=== PATIENT | male | born 1985 | race Caucasian/White ===

== ENCOUNTER 2024-12-29 00:24 | Emergency (ER) | payer OTHER, SELFPAY ==
[2024-12-29 00:32] VITALS: BP 168/84
--- NOTE | 2024-12-29 00:52 | ED.GENMED ---
History of Present Illness
General
Chief Complaint: Chest Pain
Source: patient
Time Seen by Provider: 12/29/24 00:45
History of Present Illness
History of Present Illness:
39-year-old male presents to the emergency room complaining of chest discomfort. Patient states he is having a tightness in his upper chest neck which has been present for the past couple months. He seems to notice this type of discomfort more
when he is relaxed and there is less stimulus. When he is busy during the day he does not notice it. Patient is a history of IgA nephropathy. Currently this is in remission. However he is concerned that he might be having a flare causing him to
have high blood pressure chest pain. He denies any fever, chills, nausea or vomiting.
Phy Exam
Physical Exam
Physical Exam:
General: Awake, Alert, Oriented X3. No acute distress.
Vitals: unremarkable
Head: Atraumatic
Eyes: Pupils equal, EOMI
Throat: Airway intact, no exudates
Neck: Trachea midline
Lungs: Clear and equal b/l
Heart: Regular rate, no murmurs
Abd: Soft, Nontender, No pulsatile mass
Neuro: Nonfocal
Skin: Warm, dry, no rash
Extremities: pulses equal b/l, no edema
Scores
Heart Score for Chest Pain Patients
STEMI patient?: No
History: Slightly or Non-Suspicious
ECG: Nonspecific Repolarization
Age: </= 45 years
Risk Factors: 1 or 2 Risk Factors
Troponin: </= Normal Limit
Heart Score for Chest Pain Patients: 2
Heart Score Risk: 2.5% MACE over next 6 weeks
Course
Orders/Labs/Results
Orders:
Orders
12/29/24 00:34
Electrocardiogram (*1) Urgent
Reason for Study: Chest Pain
EKG- Treatment ONCE
12/29/24 00:51
Cardiac Monitoring- Treatment ONCE
CR Chest - 2 Views Urgent
Comment:
Reason For Exam: chest pain
12/29/24 00:57
Complete Blood Count/With Diff Urgent
Comprehensive Metabolic Panel Urgent
Magnesium Urgent
Troponin I Urgent
12/29/24 01:26
Urinalysis Reflex To Culture Urgent
Date Specimen was Collected: 12/29/24
Time Specimen was Collected: 01:23
Urine Microscopic Reflex Cult Urgent
Abnormal Lab Results
12/29/24 12/29/24
00:57 01:26
RBC 4.40 L 10^6/uL
(4.70-6.10)
Hgb 12.5 L g/dL
(13.0-18.0)
Hct 38.1 L %
(39.0-52.0)
MCHC 32.8 L g/dL
(33.0-37.0)
Absolute Monos (auto) 0.7 H 10^3/uL
(0.1-0.6)
Chloride 108 H mmol/L
(98-107)
BUN 32 H mg/dl
(9-20)
Creatinine 2.1 H mg/dL
(0.7-1.3)
Glucose 113 H mg/dl
(70-99)
Ur Occult Blood Reflex 3+ A
(Negative)
Urine RBC 11-15 A /HPF
(0-2)
Urine Bacteria (Reflex) Few A
(Negative)
Urine Albumin (Reflex) 3+ A
(Neg - Trace)
12/29/24 00:57
12/29/24 00:57
Vital Signs
Initial and Last Documented VS:
Initial Vital Signs
Temp Pulse Resp BP Pulse Ox
98.3 F 91 20 168/84 99
12/29/24 00:32 12/29/24 00:32 12/29/24 00:32 12/29/24 00:32 12/29/24 00:32
Last Documented Vital Signs
Temp Pulse Resp BP Pulse Ox
98.3 F 83 20 130/78 98
12/29/24 00:32 12/29/24 03:47 12/29/24 03:47 12/29/24 03:47 12/29/24 03:48
MDM/Problems Addressed
Differential Diagnosis Includes:
Angina, GERD, chest wall pain, uncontrolled hypertension
MDM/Problems Addressed:
Patient presents with chest discomfort which is a bit atypical and that it has been present for the last few weeks. Maybe worse over the past couple days. Patient has a history of IgA nephropathy but states his creatinine has been pretty normal.
Creatinine today noted to be 2.1. He believes this is significant elevated. He sees a tube backer in [facility]. Troponin is normal x 2. Suspect he is feeling unwell because of his elevated creatinine likely related to an exacerbation of IgA
nephropathy. Briefly discussed patient's presentation with Dr. Rodriguez on-call for nephrology. She does not believe there would be any significant benefit to hospitalization as the medications he will require can all be started as an outpatient as
long as he does not have gross hematuria which he does not. Patient instructed to follow-up with his tube backer.
*Radiology
Radiology exam reviewed: preliminary read by ED provider (No acute disease on my review of the patient's chest x-ray)
*Pulse Oximetry
Patient hypoxic: no
*EKG
Interpreted by ED Provider?: Yes
Interpretation: abnormal
Heart Rate: 82
Rate: normal
Rhythm: sinus
Interval: first degree heart block
QRS Pattern: normal QRS
Ischemia: non-specific ST changes
*Applied Psychology Teacher Interpretation
Rate: normal
Interpretation: normal
Rhythm: sinus
*Critical Care Note
Total Time (30-74mins, 75-104mins- exclusive of procedures): Not Applicable
ED Attending Note
-
Portions of this chart may have been created with voice recognition software.� Occasional wrong word or��sound alike� substitutions may have occurred due to the inherent limitations of voice recognition software.
Discharge Plan
Departure
Patient Disposition: Home (Routine Discharge)
Patient with high blood pressure during this ER visit?: No
Condition: Good
Discharge Problem:
Chest pain, Creatinine elevation, IgA nephropathy
Instructions: IgA nephropathy, Chest Pain DCA Follow Up
Prescriptions:
No Action
losartan 50 mg Tablet
100 mg PO DAILY
Referrals:
NONE,* [Family Provider, Internal Medicine]
Activity Restrictions/Additional Instructions:
Please call your kidney doctor's office in the morning and ask to speak to the on-call neurologist so you can discuss the lab results. You should receive a call from the cardiology office to arrange an appointment.
Interventions
Interventions:
*Risk Screen - Suicide Last Done: 12/29/24 01:07
*General Assessment Last Done: 12/29/24 01:07
*Neglect/Abuse Screening Last Done: 12/29/24 01:07
*ED- Fall Risk Assessment Last Done: 12/29/24 01:07
*ED COVID-19 Vaccine History Last Done: 12/29/24 01:07
*Nursing Disposition Last Done: 12/29/24 03:48
ED- Cardiac Assessment Last Done: 12/29/24 01:07
Discharge Date and Time
Discharge Date/Time: 12/29/24 03:48
Print Language: MOROCCAN
[2024-12-29 01:05] VITALS: BMI 27.8
[2024-12-29 01:08] LABS: % Basophils 0.6 % (0-2); % Eosinophils 1.2 % (0-6); % Immature Granulocytes 0.4 % (0-0.5); % Lymphocytes 30.3 % (20.5-51.1); % Monocytes 8.2 % (1.7-9.3); % Neutrophils 59.3 % (42.2-75.2); Absolute Basophils 0.1 10^3/uL (0-0.2); Absolute Eosinophils 0.1 10^3/uL (0-0.7); Absolute Lymphocytes 2.6 10^3/uL (1.2-3.4); Absolute Monocytes 0.7 10^3/uL (0.1-0.6); Absolute Neutrophils 5.1 10^3/uL (1.4-6.5); Hematocrit 38.1 % (39.0-52.0); Hemoglobin 12.5 g/dL (13.0-18.0); Mean Corp Hgb Conc. 32.8 g/dL (33.0-37.0); Mean Corpuscular Hgb 28.4 pg (27.0-31.0); Mean Corpuscular Volume 86.6 fL (80.0-94.0); Mean Platelet Volume 9.6 fL (7.4-10.4); Nucleated Red Blood Cells % 0 % (-); Platelet Count 227 10^3/uL (130-400); White Blood Cell Count 8.6 10^3/uL (4.8-10.8)
[2024-12-29 01:21] LABS: ALT (SGPT) 27 U/L (0-50); AST (SGOT) 40 U/L (17-59); Albumin 4.1 g/dl (3.5-5.0); Alkaline Phosphatase 68 U/L (38-126); Blood Urea Nitrogen 32 mg/dl (9-20); Calcium 8.9 mg/dl (8.4-10.2); Carbon Dioxide 28 mmol/L (22-30); Chloride 108 mmol/L (98-107); Estimated Creatinine Clearance 54 ml/min; Glucose 113 mg/dl (70-99); Potassium 4.4 mmol/L (3.5-5.1); Sodium 142 mmol/L (135-145); Total Bilirubin 0.3 mg/dl (0.2-1.3); Total Protein 6.8 g/dl (6.3-8.2); eGFR 39.81
[2024-12-29 01:32] LABS: Troponin I < 0.012 ng/ml
[2024-12-29 01:40] VITALS: BP 138/80
[2024-12-29 01:47] LABS: Urine Albumin 3+ (Neg - Trace); Urine Bilirubin Negative (Negative); Urine Character Clear (Clear); Urine Color Yellow; Urine Glucose Negative (Negative); Urine Ketone Negative (Negative); Urine Leukocyte Negative (Negative); Urine Nitrite Negative (Negative); Urine Occult Blood 3+ (Negative); Urine Urobilinogen Negative (Neg - 1+)
[2024-12-29 01:57] LABS: Urine Bacteria Few (Negative); Urine Squamous Cell 0-2 /LPF (Few); Urine White Cell 0-2 /HPF (0-5)
[2024-12-29 02:36] VITALS: BP 110/70
[2024-12-29 03:47] VITALS: BP 130/78
== END 2024-12-29 03:48 | disposition home or self-care (01) ==
LOC: EMR 00:24
PROVIDERS: EMERGENCY PHYSICIAN Emergency Medicine
DX: R07.89 Other chest pain (principal); N02.B1 Recurrent and persistent immunoglobulin A nephropathy with glomerular lesion; R79.89 Other specified abnormal findings of blood chemistry; I44.0 Atrioventricular block, first degree
CPT/HCPCS: 99283; 71046; 80053; 81003; 81015; 83735; 84484; 85025; 93005

== ENCOUNTER 2025-01-02 23:35 | Emergency (ER) | payer OTHER, SELFPAY ==
[2025-01-02 23:45] VITALS: BP 155/80
[2025-01-03 00:53] VITALS: BP 151/66; BMI 27.5
[2025-01-03 01:00] VITALS: BP 137/66
[2025-01-03 01:07] VITALS: BP 134/52
[2025-01-03 01:11] VITALS: BP 119/37
[2025-01-03 02:05] VITALS: BP 116/71
--- NOTE | 2025-01-03 02:53 | ED.GENMED ---
History of Present Illness
General
Chief Complaint: Throat Problem
Source: patient and previous hospital records (ED visit 5 days ago with complaint of chest pain, ongoing for several months)
Exam Limitations: none
Time Seen by Provider: 01/03/25 02:43
Nursing documentation reviewed up to this point in time: agreed with
History of Present Illness
History of Present Illness:
This is a 39-year-old gentleman with history of IgA nephropathy who presents with discomfort left posterior throat region which he noticed tonight around 10:30 PM. He denies pain, no difficulty swallowing but upon investigating he noticed a white
pustule left posterior tonsillar region. He has remote history of tonsillectomy. He has not had a fever nor chills, no sore throat, no nasal congestion, no cough.
He was evaluated in this ED 5 days ago with complaints of several month history of chest pain. Unremarkable cardiac workup but was noted to have elevated creatinine of 2.1. Concern for exacerbation of IgA nephropathy. Urinalysis without gross
hematuria. Discharged to home and he has since followed up with his hub cutter apprentice and [facility]. He states plan is for oral medication.
Past History
Past History
ED Past Medical History: HTN, Renal failure (IgA nephropathy) and Psychiatric (Anxiety)
ED Past Surgical History: Tonsilectomy and Urological (Renal biopsy)
Social History
Tobacco: Non-smoker
Drug: None
Living: with family
Employment: Employed
Family History
Family History: Other (Noncontributory)
Phy Exam
Physical Exam
Physical Exam:
GENERAL: Alert , in no apparent distress
EYE: pupils equal and reactive. anicteric
NECK: Supple, nontender, no meningismus, no significant adenopathy.
ENT: posterior pharynx has no injection or edema. There is a small, approximately 3 mm whitish mucocele versus pustule located left posterior tonsillar pillar. No local tenderness to palpation. Nodule is firm. Oral mucosa is moist. TM clear b/l,
nares patent.
CARDIAC: Regular rate and rhythm. no murmur.
LUNGS: Clear breath sounds bilaterally, no acute respiratory distress, no wheezes/rales/rhonchi
ABDOMEN: Soft, nondistended, without focal tenderness
NEUROLOGICAL: Alert and oriented x3, no focal neuro deficits. Gait is abarca and steady.
SKIN: Warm and dry, normal color, skin intact. No rash.
MUSCULOSKELETAL: No C/C/E. peripheral pulses are full and equal b/l. No palpable tenderness.
PSYCH: Normal and appropriate interaction.
Course
Orders/Labs/Results
Orders:
Orders
01/03/25 02:52
Amoxicillin [Amoxil] 500 mg PO NOW STA
Vital Signs
Initial and Last Documented VS:
Initial Vital Signs
Temp Pulse Resp BP Pulse Ox
99.2 F 98 18 155/80 98
01/02/25 23:45 01/02/25 23:45 01/02/25 23:45 01/02/25 23:45 01/02/25 23:45
Last Documented Vital Signs
Temp Pulse Resp BP Pulse Ox
99.2 F 89 18 116/71 100
01/02/25 23:45 01/03/25 03:14 01/03/25 03:14 01/03/25 02:05 01/03/25 03:14
MDM/Problems Addressed
Differential Diagnosis Includes:
Patient presents with focal small mucocele versus pustule left tonsillar pillar. There is no surrounding soft tissue swelling, no erythema. Nodule is firm, nontender.
Overall well in appearance. Borderline low-grade fever, afebrile upon recheck. Patient denies recent fever.
Recommend initiation of a course of amoxicillin for potential bacterial related pustule, otherwise recommend supportive measures, warm salt water gargles, Tylenol as needed for discomfort.
Follow-up with PCP for recheck.
At this point no indication to holly this small pustule versus mucocele as oftentimes resolves on its own.
MDM/Problems Addressed:
Patient has history of IgA nephropathy, recent ED visit 5 days ago revealed creatinine of 2.1. No significant hematuria.
He has since followed up with his hub cutter apprentice with plan to initiate outpatient medications.
Chronic conditions affecting care: Kidney disease
*Pulse Oximetry
Patient hypoxic: no
*Critical Care Note
Total Time (30-74mins, 75-104mins- exclusive of procedures): Not Applicable
ED Attending Note
-
Portions of this chart may have been created with voice recognition software.� Occasional wrong word or��sound alike� substitutions may have occurred due to the inherent limitations of voice recognition software.
Discharge Plan
Departure
Patient Disposition: Home (Routine Discharge)
Date of Disposition: 01/03/25
Time of Disposition: 02:56
Patient with high blood pressure during this ER visit?: No
Condition: Good
Discharge Problem:
pharyngeal mucocele vs pustule
Instructions: Sore Throat, Adult (DC)
Prescriptions:
New
amoxicillin 500 mg capsule
500 mg PO BID Qty: 14 0RF
No Action
losartan 50 mg Tablet
100 mg PO DAILY
Referrals:
UNKNOWN - PT DOES,NOT KNOW [Family Provider] - Call in 1-3 days for appt
Interventions
Interventions:
*Risk Screen - Suicide Last Done: 01/02/25 23:45
*General Assessment Last Done: 01/03/25 00:55
*Neglect/Abuse Screening Last Done: 01/03/25 00:55
*ED- Fall Risk Assessment Last Done: 01/03/25 00:55
*ED COVID-19 Vaccine History Last Done: 01/03/25 00:55
*Nursing Disposition Last Done: 01/03/25 03:14
ED-EENT Assessment Last Done: 01/03/25 00:55
ED- Pulmonary Assessment Last Done: 01/03/25 00:55
Discharge Date and Time
Discharge Date/Time: 01/03/25 03:16
Print Language: ANGOLAN
[2025-01-03] MEDS: AMOXIL 500 MG PO (03:12)
== END 2025-01-03 03:16 | disposition home or self-care (01) ==
LOC: EMR 23:35
PROVIDERS: EMERGENCY PHYSICIAN Emergency Medicine
DX: L08.89 Other specified local infections of the skin and subcutaneous tissue (principal); K11.6 Mucocele of salivary gland; I10 Essential (primary) hypertension
CPT/HCPCS: 99283

== ENCOUNTER 2025-05-14 23:12 | Observation (INO) | payer OTHER, SELFPAY ==
[2025-05-14] VITALS (8 sets, daily range): BP systolic 116–136; BP diastolic 52–76; BMI 25.7; BMI 26.5
[2025-05-14 18:02] LABS: Hematocrit 40.9 % (39.0-52.0); Hemoglobin 13.2 g/dL (13.0-18.0); Mean Corp Hgb Conc. 32.3 g/dL (33.0-37.0); Mean Corpuscular Volume 83.5 fL (80.0-94.0); Nucleated Red Blood Cells % 0 % (-); Platelet Count 287 10^3/uL (130-400); Red Cell Dist. Width 13.1 % (11.5-14.5)
[2025-05-14 18:16] LABS: ALT (SGPT) 22 U/L (0-50); AST (SGOT) 27 U/L (17-59); Albumin 4.4 g/dl (3.5-5.0); Alkaline Phosphatase 42 U/L (38-126); Blood Urea Nitrogen 33 mg/dl (9-20); Calcium 9.4 mg/dl (8.4-10.2); Carbon Dioxide 26 mmol/L (22-30); Chloride 103 mmol/L (98-107); Glucose 108 mg/dl (70-99); Lipase 229 U/L (23-300); Potassium 4.8 mmol/L (3.5-5.1); Sodium 136 mmol/L (135-145); Total Protein 7.3 g/dl (6.3-8.2); eGFR 39.81
[2025-05-14 18:32] LABS: Urine Character Clear (Clear)
[2025-05-14 19:34] LABS: Urine Squamous Cell 0-2 /LPF (Few)
[2025-05-14 19:35] LABS: Urine Red Blood Cell 0-2 /HPF (0-2); Urine White Cell 0-2 /HPF (0-5)
[2025-05-14] MEDS: TYLENOL 1000 MG PO (20:12)
[2025-05-14] MEDS: NSS 1000 IV ×2 (20:12→22:56)
--- NOTE | 2025-05-14 21:33 | ED.GENMED ---
History of Present Illness
<Jeannine Jose PA-C - Last Filed: 05/15/25 00:52>
General
Chief Complaint: Abdominal Pain
Time Seen by Provider: 05/14/25 19:46
History of Present Illness
History of Present Illness:
see MDM
Past History
<PADMA Carpio Last Filed: 05/15/25 00:52>
Past History
ED Past Medical History: HTN, Renal failure (IgA nephropathy) and Psychiatric (Anxiety)
ED Past Surgical History: Tonsilectomy and Urological (Renal biopsy)
Social History
Tobacco: Non-smoker
Drug: None
Living: with family
Employment: Employed
Family History
Family History: Other (Noncontributory)
Phy Exam
<Jeannine Jose PA-C - Last Filed: 05/15/25 00:52>
Physical Exam
Physical Exam:
GENERAL: Alert , in no apparent distress
EYE: pupils equal and reactive
NECK: Supple
ENT: o/p clr, mmm.
CARDIAC: Tachycardia
LUNGS: Clear breath sounds bilaterally, no acute respiratory distress, no wheezes/rales/rhonchi
ABDOMEN: Soft, mild left lower quad tendenress, no r/g, no cvat, normal bowel sounds
NEUROLOGICAL: Alert and oriented, no focal neuro deficits
SKIN: Warm and dry, skin intact.
MUSCULOSKELETAL: No edema, well perfused.
PSYCH: Normal and appropriate interaction.
Course
<PADMA Carpio Last Filed: 05/15/25 00:52>
Orders/Labs/Results
Orders:
Orders
05/14/25 17:35
Complete Blood Count/With Diff Urgent
Comprehensive Metabolic Panel Urgent
Lipase Urgent
Urinalysis Reflex To Culture Urgent
Date Specimen was Collected: 05/14/25
Time Specimen was Collected: 17:29
Urine Microscopic Reflex Cult Urgent
Urine Culture Urgent
JOHN Source: U
Specimen Description:
Date Specimen was Collected: 05/14/25
Time Specimen was Collected: 17:29
05/14/25 19:56
CT Abd/pel Without Iv Or Oral Urgent
Comment:
Reason For Exam: fever, LLQ pain, hematuria; h/o igA nephropathy
05/14/25 19:58
0.9% Sodium Chloride 1000 ml [Nss] 1,000 ml IV BOLUS
Acetaminophen [Tylenol] 1,000 mg PO NOW STA
05/14/25 20:09
Lactic Acid Urgent
Blood Culture Q20M
JOHN Source: Blood/Venous
Specimen Description:
Comment: Urgent from separate sites. If patient screens positive for possible sepsis
Blood Culture Q20M
JOHN Source: Blood/Venous
Specimen Description:
Comment: Urgent from separate sites. If patient screens positive for possible sepsis
05/14/25 21:30
Piperacillin/Tazo 3.375 Gram [Zosyn] 3.375 gram in 50 ml IV NOW
05/14/25 21:40
0.9% Sodium Chloride 1000 ml [Nss] 1,000 ml IV BOLUS
05/14/25 22:06
Admit/Transfer Patient As Directed
Co-Sign Provider:
Level of Care: Observation services
Assign to:: Medical/Surgical
Physician / Group: Angel
Diagnosis: diverticulitis
Reason for Hospitalization: acute diverticulitis
Expected length of stay greater than two midnights?: Yes
ELOS- Estimated Length of Stay in days: 2
I certify the patient meets the requirements for IP care: Yes
PRN Pain Medication Management As Directed
May give lesser potent ordered pain med per pt: Yes
preference::
Protocol:: Medication orders for pain may be administered in a
manner that supports deferring to patient preference
when the pt is:
- Requesting an ordered lesser potent pain medication.
Least to most potent pain medications are defined
as: acetaminophen < NSAID < tramadol < opioids
(morphine, oxycodone, hydromorphone).
- Requesting a lesser dose of the same medication IF
ORDERED.
- Requesting a less intrusive route of administration
if both routes are prescribed by the provider (PO <
IV).
05/14/25 22:07
Code Status As Directed
Resuscitation Status: Full Code
05/14/25 23:44
0.9% Sodium Chloride 1000 ml [Nss] 1,000 ml IV 125 mls/hr
Acetaminophen [Tylenol] 650 mg PO Q4HPRN PRN
Bisacodyl [Dulcolax] 10 mg RECTAL [id number] PRN
Docusate W/Senna [Senokot-S] 1 tablet PO BIDPRN PRN
HYDROmorphone [Dilaudid] 0.5 mg IV Q4HPRN PRN
Ondansetron Injectable [Zofran] 4 mg IV Q6HPRN PRN
Oxycodone [Roxicodone] 5 mg PO Q4HPRN PRN
Polyethylene Glycol Powder [Miralax] 17 grams PO DAILYPRN PRN
05/14/25 23:44
Activity As Directed
Activity Level: With Assistance
Vital Signs As Directed
Frequency: Per unit guidelines
DX Deep Vein Thrombosis Video Routine
05/15/25 00:00
Heparin 5,000 units SC Q8
05/15/25 04:00
Piperacillin/Tazo 3.375 Gram [Zosyn] 3.375 gram in 50 ml IV Q6H
05/15/25 Breakfast
Clear Liquid
At Your Request: Full Participation
Basic Metabolic Panel IN AM
Complete Blood Count/No Diff IN AM
05/15/25 08:00
Amlodipine [Norvasc] 2.5 mg PO DAILY
Dapagliflozin [Farxiga] 10 mg PO DAILY
tadalafil See Dose Instructions PO DAILY
05/15/25 22:00
Losartan [Cozaar] 100 mg PO HS
Abnormal Lab Results
05/14/25
17:35
WBC 15.3 H 10^3/uL
(4.8-10.8)
MCH 26.9 L pg
(27.0-31.0)
MCHC 32.3 L g/dL
(33.0-37.0)
Abs Immat Gran (auto) 0.1 H 10^3/uL
(0-0.05)
Absolute Neuts (auto) 12.3 H 10^3/uL
(1.4-6.5)
Absolute Monos (auto) 1.0 H 10^3/uL
(0.1-0.6)
Neutrophils % 80.8 H %
(42.2-75.2)
Lymphocytes % 11.6 L %
(20.5-51.1)
BUN 33 H mg/dl
(9-20)
Creatinine 2.1 H mg/dL
(0.7-1.3)
Glucose 108 H mg/dl
(70-99)
Urine Ketones 2+ A
(Negative)
Ur Occult Blood Reflex 2+ A
(Negative)
Urine Bacteria (Reflex) Moderate A
(Negative)
Urine Glucose 4+ A
(Negative)
Urine Albumin (Reflex) 2+ A
(Neg - Trace)
05/14/25 17:35
05/14/25 17:35
Vital Signs
Initial and Last Documented VS:
Initial Vital Signs
Temp Pulse Resp BP Pulse Ox
37.6 C 116 18 121/74 98
05/14/25 17:25 05/14/25 17:25 05/14/25 17:25 05/14/25 17:25 05/14/25 17:25
Last Documented Vital Signs
Temp Pulse Resp BP Pulse Ox
37.3 C 92 18 136/76 97
05/14/25 23:35 05/14/25 23:35 05/14/25 23:35 05/14/25 23:35 05/14/25 23:35
<Steven Gaspar MD - Last Filed: 05/14/25 21:48>
Orders/Labs/Results
Orders:
Orders
05/14/25 17:35
Complete Blood Count/With Diff Urgent
Comprehensive Metabolic Panel Urgent
Lipase Urgent
Urinalysis Reflex To Culture Urgent
Date Specimen was Collected: 05/14/25
Time Specimen was Collected: 17:29
Urine Microscopic Reflex Cult Urgent
Urine Culture Urgent
JOHN Source: U
Specimen Description:
Date Specimen was Collected: 05/14/25
Time Specimen was Collected: 17:29
05/14/25 19:56
CT Abd/pel Without Iv Or Oral Urgent
Comment:
Reason For Exam: fever, LLQ pain, hematuria; h/o igA nephropathy
05/14/25 19:58
0.9% Sodium Chloride 1000 ml [Nss] 1,000 ml IV BOLUS
Acetaminophen [Tylenol] 1,000 mg PO NOW STA
05/14/25 20:09
Lactic Acid Urgent
Blood Culture Q20M
JOHN Source: Blood/Venous
Specimen Description:
Comment: Urgent from separate sites. If patient screens positive for possible sepsis
Blood Culture Q20M
JOHN Source: Blood/Venous
Specimen Description:
Comment: Urgent from separate sites. If patient screens positive for possible sepsis
05/14/25 21:30
Piperacillin/Tazo 3.375 Gram [Zosyn] 3.375 gram in 50 ml IV NOW
05/14/25 21:40
0.9% Sodium Chloride 1000 ml [Nss] 1,000 ml IV BOLUS
05/14/25 22:06
Admit/Transfer Patient As Directed
Co-Sign Provider:
Level of Care: Observation services
Assign to:: Medical/Surgical
Physician / Group: Angel
Diagnosis: diverticulitis
Reason for Hospitalization: acute diverticulitis
Expected length of stay greater than two midnights?: Yes
ELOS- Estimated Length of Stay in days: 2
I certify the patient meets the requirements for IP care: Yes
PRN Pain Medication Management As Directed
May give lesser potent ordered pain med per pt: Yes
preference::
Protocol:: Medication orders for pain may be administered in a
manner that supports deferring to patient preference
when the pt is:
- Requesting an ordered lesser potent pain medication.
Least to most potent pain medications are defined
as: acetaminophen < NSAID < tramadol < opioids
(morphine, oxycodone, hydromorphone).
- Requesting a lesser dose of the same medication IF
ORDERED.
- Requesting a less intrusive route of administration
if both routes are prescribed by the provider (PO <
IV).
05/14/25 22:07
Code Status As Directed
Resuscitation Status: Full Code
05/14/25 23:44
0.9% Sodium Chloride 1000 ml [Nss] 1,000 ml IV 125 mls/hr
Acetaminophen [Tylenol] 650 mg PO Q4HPRN PRN
Bisacodyl [Dulcolax] 10 mg RECTAL [id number] PRN
Docusate W/Senna [Senokot-S] 1 tablet PO BIDPRN PRN
HYDROmorphone [Dilaudid] 0.5 mg IV Q4HPRN PRN
Ondansetron Injectable [Zofran] 4 mg IV Q6HPRN PRN
Oxycodone [Roxicodone] 5 mg PO Q4HPRN PRN
Polyethylene Glycol Powder [Miralax] 17 grams PO DAILYPRN PRN
05/14/25 23:44
Activity As Directed
Activity Level: With Assistance
Vital Signs As Directed
Frequency: Per unit guidelines
DX Deep Vein Thrombosis Video Routine
05/15/25 00:00
Heparin 5,000 units SC Q8
05/15/25 04:00
Piperacillin/Tazo 3.375 Gram [Zosyn] 3.375 gram in 50 ml IV Q6H
05/15/25 Breakfast
Clear Liquid
At Your Request: Full Participation
Basic Metabolic Panel IN AM
Complete Blood Count/No Diff IN AM
05/15/25 08:00
Amlodipine [Norvasc] 2.5 mg PO DAILY
Dapagliflozin [Farxiga] 10 mg PO DAILY
tadalafil See Dose Instructions PO DAILY
05/15/25 22:00
Losartan [Cozaar] 100 mg PO HS
Abnormal Lab Results
05/14/25
17:35
WBC 15.3 H 10^3/uL
(4.8-10.8)
MCH 26.9 L pg
(27.0-31.0)
MCHC 32.3 L g/dL
(33.0-37.0)
Abs Immat Gran (auto) 0.1 H 10^3/uL
(0-0.05)
Absolute Neuts (auto) 12.3 H 10^3/uL
(1.4-6.5)
Absolute Monos (auto) 1.0 H 10^3/uL
(0.1-0.6)
Neutrophils % 80.8 H %
(42.2-75.2)
Lymphocytes % 11.6 L %
(20.5-51.1)
BUN 33 H mg/dl
(9-20)
Creatinine 2.1 H mg/dL
(0.7-1.3)
Glucose 108 H mg/dl
(70-99)
Urine Ketones 2+ A
(Negative)
Ur Occult Blood Reflex 2+ A
(Negative)
Urine Bacteria (Reflex) Moderate A
(Negative)
Urine Glucose 4+ A
(Negative)
Urine Albumin (Reflex) 2+ A
(Neg - Trace)
05/14/25 17:35
05/14/25 17:35
Vital Signs
Initial and Last Documented VS:
Initial Vital Signs
Temp Pulse Resp BP Pulse Ox
37.6 C 116 18 121/74 98
05/14/25 17:25 05/14/25 17:25 05/14/25 17:25 05/14/25 17:25 05/14/25 17:25
Last Documented Vital Signs
Temp Pulse Resp BP Pulse Ox
37.3 C 92 18 136/76 97
05/14/25 23:35 05/14/25 23:35 05/14/25 23:35 05/14/25 23:35 05/14/25 23:35
<Jeannine Jose PA-C - Last Filed: 05/15/25 00:52>
MDM/Problems Addressed
Differential Diagnosis Includes:
see MDM
MDM/Problems Addressed:
Note:
CHIEF COMPLAINT(S)
Abdominal pain on the left side, radiating to the back and scrotum, ongoing since yesterday morning.
HISTORY OF PRESENT ILLNESS
The patient, a {MALE} with a known history of Immunoglobulin A nephropathy, presents with left-sided abdominal pain that radiates to the back and scrotum. The pain began the previous morning. The patient notes that the pain is mostly localized on
the left side and moves toward the center. He reports having Immunoglobulin A nephropathy, with a history of serum creatinine levels around 2, last recorded at 2.1 in December. The patient confirms the presence of proteinuria and occasional hematuria in
his urinalysis. He denies a history of kidney stones but confirms having had a kidney biopsy a long time ago. The patient is under the care of a tractor trailer operator at [place], though he does not recall the name. He denies having diverticulitis and reports no
episodes of diarrhea or fever recently. The patient is advised against the use of non-steroidal anti-inflammatory drugs.
CHRONIC MEDICAL CONDITIONS SIGNIFICANTLY AFFECTING CARE
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
PLAN
A non-contrast computed tomography (CT) scan will be ordered to rule out the presence of kidney stones or other related complications without risking renal function. The patient was offered pain management above standard acetaminophen, which he
declines until after further investigation.
DIFFERENTIAL DIAGNOSIS
The Differential Diagnosis includes, in no particular order, and is not limited to:
1. Kidney stone
2. Pyelonephritis
3. Urinary tract infection
4. Diverticulitis
5. Renal abscess
6. Hydronephrosis
7. Epididymitis
8. Testicular torsion
9. Hernia
10. Musculoskeletal pain
39y/o M
igA nephropathy
sees tractor trailer operator
here with llq pain, fever since yesterday
minimal diarrhea
febrile here, tachy
tender LLQ
lactic normal
wbc 15 left shift
concern for infecte stone vs. diveritc
ct suggestive of colitis vs. diverticulitis
still mildy tachy 105, will give more IVF, zosyn
<Jeannine Jose PA-C - Last Filed: 05/15/25 00:52>
*Pulse Oximetry
SaO2: 96
Oxygen Mode of Delivery: Room air
Patient hypoxic: no (97)
*Critical Care Note
Total Time (30-74mins, 75-104mins- exclusive of procedures): Not Applicable
ED Attending Note
<Jeannine Jose PA-C - Last Filed: 05/15/25 00:52>
-
Portions of this chart may have been created with voice recognition software.� Occasional wrong word or��sound alike� substitutions may have occurred due to the inherent limitations of voice recognition software.
<Steven Gaspar MD - Last Filed: 05/14/25 21:48>
ED Attending Note
Patient seen and examined by attending physician: Yes
ED Attending Note:
I have seen and evaluated the patient with a [id number] encounter. I have spoken to the advance practicer provider and involved in the medical history, the physical exam, medical decision making.
Evaluation and management service: agree unless noted differently below.
Results interpretation: agree unless noted differently below.
Focused HPI: 39-year-old male with history as noted significant for IgA nephropathy and chronic kidney disease who presents to the ER for evaluation of abdominal pain. Patient reports onset of symptoms yesterday and they have been constant since
that time. Pain is located in the left lower quadrant. Associated with fever and chills. No nausea or vomiting. No diarrhea or constipation. No urinary symptoms noted. No similar symptoms in the past.
Physical exam: Awake and alert not in distress. Tachycardic, febrile, mild tachypnea. Abdomen soft and tender to palpation in the left lower quadrant.
Medical Decision Makin-year-old male presents with fever and abdominal pain. Vitals and exam as above. Labs were significant for leukocytosis to 15.3. Chemistry shows stable CKD. Urinalysis no infection. CT abdomen pelvis shows
diverticulitis. With multiple SIRS criteria will admit for IV antibiotics.
Discharge Plan
Departure
Patient Disposition: Admit
Date of Disposition: 05/14/25
Time of Disposition: 21:32
Admit to: Med/Surg
Presentation/result/management discussed w/ accepting MD/DO: Hospitalist
Condition: Fair
Covid-19: Not Applicable
Discharge Problem:
Diverticulitis
Interventions
Interventions:
*Risk Screen - Suicide Last Done: 05/14/25 17:25
*General Assessment Last Done: 05/14/25 17:25
*Neglect/Abuse Screening Last Done: 05/14/25 17:25
*ED- Fall Risk Assessment Last Done: 05/14/25 19:37
*ED COVID-19 Vaccine History Last Done: 05/14/25 17:25
*ED Influenza Vaccine History Last Done: 05/14/25 17:25
*Nursing Disposition Last Done: 05/14/25 23:27
TI-Iblslv-Exaupodqwb Assessment Last Done: 05/14/25 19:37
Discharge Date and Time
Discharge Date/Time: 05/14/25 23:50
[2025-05-14] MEDS: ZOSYN 50 IV (21:42)
--- NOTE | 2025-05-14 21:58 | HPS.HSE ---
Family Physician
-
Family Physician: * NONE
Chief Complaint
-
Abdominal pain
History of Present Illness
This is a 39-year-old male with past medical history of IgA nephropathy status post prednisone treatment with subsequent CKD stage III and hypertension presenting to the emergency department with left lower quadrant abdominal pain.
Patient reports acute onset of left lower quadrant abdominal pain that was up to a 8 out of 10 with associated nausea vomiting but no diarrhea and no constipation. Reports generalized chills as well as low-grade temps of around 100 �F. He denies
any rash. He denies any urinary symptoms.
Denies any recent antibiotic use.
On arrival in the emergency department he had a temp of about 100 �F, blood pressure was 110/53 with a pulse of 109 and he was satting 98% on room air. Had a leukocytosis to 15.3, rule out platelets were normal. Electrolytes were normal.
BUN/creatinine with that she had 2.1 which are unchanged from prior with a glucose of 108.
CT of the abdomen pelvis shows a focal segment of wall thickening and stranding of adjacent fat compatible with focal area of colitis and most likely at the base of diverticulitis. No evidence of abscess or perforation. There is a small amount of
free fluid within the pelvic cul-de-sac.
Medical History
Past Medical History
Past Medical History: Reports GERD and HTN
Additional Past Medical History:
IgA nephropathy status post prednisone treatment
CKD stage III
Past Surgical History: Reports None
Social History
Tobacco: Non-smoker
Alcohol: None
Drug: None
Personal:
Family History
Family History: Not pertinent
Allergies / Home Medications
Allergies reflects when Allergies were last updated in [employer] [facility].
Home Medications with original date entered in [employer] [facility]
Allergy/Medication List:
Allergies
Allergy/AdvReac Type Severity Reaction Status Date / Time
No Known Allergies Allergy Verified 05/14/25 17:27
Home Medications
losartan 50 mg tablet, 100 mg PO HS
Farxiga 10 mg tablet, 10 mg p.o. daily
Amlodipine 2.5 mg tab tablet, 2.5 mg p.o. daily
Tadalafil 10 mg tablet, 10 mg p.o. daily
Review of Systems
-
Constitutional: Reports No Symptoms
EENT: Reports No Symptoms
Respiratory: Reports No Symptoms
Cardiac: Reports No Symptoms
Abdomen/GI: Reports Abdominal Pain, Nausea and Vomiting
: Reports No Symptoms
Musculoskeletal: Reports No Symptoms
Skin: Reports No Symptoms
Neurological: Reports No Symptoms
Endocrine: Reports No Symptoms
Hematologic/Lymphatic: Reports No Symptoms
Psych: Reports No Symptoms
Physical Exam
Vital Signs
Vital Signs
Temp Pulse Resp BP Pulse Ox
100.0 F 109 23 116/53 96
05/14/25 19:49 05/14/25 21:15 05/14/25 21:15 05/14/25 21:00 05/14/25 21:35
Physical Exam
General: Well Developed, Well Nourished and No Apparent Distress
HEENT: NormoCephalic, Moist mucous membranes and Atraumatic
Respiratory: Clear
Cardiac: S1/S2 and Regular Rhythm; No Murmur or Rub
GI: Soft, Non Distended, Normal Bowel Sounds and Tender (LLQ); No Organomegaly
Rectal: Deferred by Provider
Genito-urinary: Deferred by me
Musculoskeletal: No Clubbing, No Cyanosis and No Edema
Skin: No Rash
Neuro: AO x 3 and Nonfocal/grossly intact
Hematologic/Lymphatic: No Lymphadenopathy
Laboratory Results
-
05/14/25 17:35
05/14/25 17:35
Laboratory Results
Lactic Acid 0.7 mmol/L (0.7-2.0) 05/14/25 20:09
Total Bilirubin 0.7 mg/dl (0.2-1.3) 05/14/25 17:35
AST 27 U/L (17-59) 05/14/25 17:35
ALT 22 U/L (0-50) 05/14/25 17:35
Alkaline Phosphatase 42 U/L (38-126) 05/14/25 17:35
Lipase 229 U/L (23-300) 05/14/25 17:35
Data Reviewed
-
CT Scan: Report Reviewed by me
Lab Data: Labs Reviewed by me
Old Records: Reviewed
Impression/Plan
-
IMPRESSION:
39-year-old with history of IgA nephropathy and residual CKD stage III with hypertension presents to the emergency department with left lower quadrant abdominal pain and found to have sigmoid diverticulitis without any complication. He does have
signs of systemic infection with low-grade temperatures and a WBC of 15.3.
PLAN:
Acute sigmoid diverticulitis�systemic signs of infection but no local complications such as abscess or perforation.
-Admit to MedSurg
-N.p.o. for now, advance to clear liquids in a.m.
-Continue with gentle hydration overnight
-Will continue IV Zosyn, blood cultures sent due to temps
- No recent antibiotic use, no recent immunosuppressants.
-Pain control and antiemetics
Hypertension
-Continue losartan 100 at bedtime with hold parameters
� Continue amlodipine 2.5 daily
CKD stage III
-Patient on Farxiga 10 mg, continue for now
� Tadalafil 10 mg p.o. daily with hold parameters for hypotension
DVT prophylaxis�heparin subcu
CODE STATUS�full code
[2025-05-15] MEDS: NSS 1000 IV (00:08)
--- NOTE | 2025-05-15 01:45 | PTCARENOTE ---
Pt admitted to [facility] from ED. Pt ambulating without issues. AAOx3, denies pain at this time. Lungs clear, pt on room air. Pt afebrile, VSS. Left AC IV C/D/I, infusing IVF per MD order. No N/V or stools. Pt voiding without issues. Pt remains
NPO at this time. Skin WNL. Call hale within reach.
[2025-05-15] MEDS: ZOSYN 50 IV ×3 (04:27→16:20)
[2025-05-15 07:33] VITALS: BP 121/66
[2025-05-15 07:52] LABS: Blood Urea Nitrogen 30 mg/dl (9-20); Calcium 8.6 mg/dl (8.4-10.2); Carbon Dioxide 23 mmol/L (22-30); Chloride 108 mmol/L (98-107); Estimated Creatinine Clearance 59 ml/min; Glucose 74 mg/dl (70-99); Potassium 4.7 mmol/L (3.5-5.1); Sodium 137 mmol/L (135-145); eGFR 44.89
[2025-05-15 07:58] LABS: Hematocrit 37.5 % (39.0-52.0); Hemoglobin 11.9 g/dL (13.0-18.0); Mean Corp Hgb Conc. 31.7 g/dL (33.0-37.0); Mean Corpuscular Volume 86.4 fL (80.0-94.0); Platelet Count 224 10^3/uL (130-400); Red Cell Dist. Width 13.1 % (11.5-14.5)
[2025-05-15] MEDS: FARXIGA 10 MG PO (08:56)
[2025-05-15] MEDS: NORVASC 2.5 MG PO (08:56)
[2025-05-15] MEDS: TYLENOL 650 MG PO (09:03)
--- NOTE | 2025-05-15 10:18 | CM ---
Patient seen bedside, initial assessment completed. Patient is a 39-year-old male with past medical history of IgA nephropathy status post prednisone treatment with subsequent CKD stage III and hypertension presenting to the emergency department
with left lower quadrant abdominal pain. Currently NPO. IV Zofran.
Patient resides alone in a 5th floor apartment, no steps from the outside. Elevator access to apartment. Patient is independent in all areas. No DME. No therapy hx.
Address, point of contact and insurance verified
PCP: Patient has assigned PCP on insurance card but does not see one, only specialists
Pharmacy: [facility]
Patient admitted obs. OOBS form verbally reviewed, copy provided, copy on chart
Plan: Anticipating home, no needs
--- NOTE | 2025-05-15 15:21 | W.PN.HOSP.TC ---
Addendum entered and electronically signed by Aj Potter MD 05/15/25 15:41:
Acute sigmoid diverticulitis
Advance diet as tolerated
Transition IV Zosyn to Augmentin x 10 days
Continue analgesics
Antiemetics
Will need repeat C-scope in 6 to 8 weeks with GI
Hypertension
Continue antihypertensive
CKD stage III
Continue Farxiga tadalafil
If able to tolerate diet can discharge home on Augmentin x 10 days
I personally reviewed and evaluated this patient with the resident. I agree with above unless if otherwise stated below.
I personally reviewed labs and imaging bi consultant notes case management note
Original Note:
Today's Communication/Plan
-
Advanced the diet to low residue
continue IV Zosyn
if tolerating the diet will discharge him today on Augmentin PO for 10 days
Assessment / Plan
Assessment / Plan
Impression:
39-year-old male with past medical history of IgA nephropathy status post prednisone treatment with subsequent CKD stage III and hypertension presenting to the emergency department with left lower quadrant abdominal pain.
Patient reports acute onset of left lower quadrant abdominal pain that was up to a 8 out of 10 with associated nausea vomiting but no diarrhea and no constipation. Reports generalized chills as well as low-grade temps of around 100 �F. He denies
any urinary symptoms.On arrival in the emergency department he had a temp of about 100 �F, blood pressure was 110/53 with a pulse of 109 and he was satting 98% on room air. Had a leukocytosis to 15.3. Patient stated that he had colonoscopy 10 years
ago and had been told he had colitis but was not sure what the treatment he was receiving at that time.
CT of the abdomen pelvis shows a focal segment of wall thickening and stranding of adjacent fat compatible with focal area of colitis and most likely at the base of diverticulitis. No evidence of abscess or perforation. There is a small amount of
free fluid within the pelvic cul-de-sac.
Plan:
#Acute sigmoid diverticulitis�systemic signs of infection but no local complications such as abscess or perforation.
-Residue diet
-Will continue IV Zosyn, blood cultures sent due to temps
-No recent antibiotic use, no recent immunosuppressants.
-Pain control and antiemetics
#Hypertension
-Continue losartan 100 at bedtime with hold parameters
� Continue amlodipine 2.5 daily
#CKD stage III
-Patient on Farxiga 10 mg, continue for now
� Tadalafil 10 mg p.o. daily with hold parameters for hypotension
DVT prophylaxis�heparin subcu
CODE STATUS�full code
Anticipated Discharge: Today
Subjective/Interval History
-
Date of Service: May 15, 2025
Patient has pain in his left lower quadrant 05/08, no vomiting , no nausea, no fever , no chills.
Objective Data
-
Labs:
Laboratory Results
05/15/25
06:57
WBC 10.6
Hgb 11.9 L
Hct 37.5 L
Plt Count 224 D
Sodium 137
Potassium 4.7
Chloride 108 H
Carbon Dioxide 23
BUN 30 H
Creatinine 1.9 H
Glucose 74
Calcium 8.6
Vital Signs:
Vital Signs
Temp Pulse Resp BP Pulse Ox
98.6 F 90 14 121/66 98
05/15/25 07:33 05/15/25 08:56 05/15/25 07:33 05/15/25 08:56 05/15/25 07:33
Review of Systems
-
History Source: Patient
Respiratory: Reports No Symptoms
Cardiac: Reports No Symptoms
Abdomen/GI: Reports Abdominal Pain
Genitourinary: Reports No Symptoms
Musculoskeletal: Reports No Symptoms
Neuro: Reports No Symptoms
Physical Exam
-
General: Well Developed, Well Nourished and No Apparent Distress
Respiratory: Clear to Auscultation
Cardiac: Regular Rhythm and S1/S2
GI: Soft and Tender (left lower quadrant )
Musculoskeletal: No Clubbing, No Cyanosis and No Edema
Skin: Warm and Dry
[2025-05-15 15:42] VITALS: BP 134/78
--- NOTE | 2025-05-16 08:01 | W.DCSUMMARY ---
Discharge Summary
Discharge Data
Date of Admission: 05/14/25
Date of Discharge: 05/16/25
-
Pending Results: No
Additional Pending Results:
Discharging Physician:
Luis Manuel Thompson
Disposition:
Home
Primary Care physician:
None
Principal Discharge Diagnosis:
Diverticulitis
Hepatomegaly with fatty liver.
Bilateral renal cysts
Chronic Discharge Diagnosis:
GERD
Hypertension
IgA nephropathy status post prednisone treatment
CKD stage III
Hospital Course
This is a 39-year-old male with past medical history of IgA nephropathy status post prednisone treatment with subsequent CKD stage III and hypertension presenting to the emergency department with left lower quadrant abdominal pain.
Patient stated that he had a colonoscopy 10 years ago and had been told he has a colitis and recieved treatment but was not sure what it was.
Patient reports acute onset of left lower quadrant abdominal pain that was up to a 8 out of 10 with associated nausea vomiting but no diarrhea and no constipation. Reports generalized chills as well as low-grade temps of around 100 �F. He denies
any rash. He denies any urinary symptoms.
On arrival in the emergency department he had a temp of about 100 �F, blood pressure was 110/53 with a pulse of 109 and he was satting 98% on room air. Had a leukocytosis to 15.3, rule out platelets were normal. Electrolytes were normal.
BUN/creatinine with that she had 2.1 which are unchanged from prior with a glucose of 108.
CT of the abdomen pelvis shows a focal segment of wall thickening and stranding of adjacent fat compatible with focal area of colitis and most likely at the base of diverticulitis. No evidence of abscess or perforation. There is a small amount of
free fluid within the pelvic cul-de-sac. Patent has been admitted and started on IV Zosyn with pain, antiemetic medication and NPO.His diet has been advanced to clear liquid and then low residue diet and his symptoms started to improved. His WBC wnl
on 05/15/2025 Patient advised to follow up with GI doctor as an outpatient for possible colonoscopy. He discharged in stable condition on Augmentin orally for 10 days.
Important Radiology Findings:
CT Abd/pel Without Iv Or Oral 05/14/2025
IMPRESSION:
In the distal descending colon, there is a focal segment of significant wall thickening and stranding of the adjacent fat, compatible with a focal area of colitis. This is most likely on the basis of diverticulitis.
No evidence for abscess. No evidence for free intraperitoneal air.
Small amount of free fluid within the pelvic cul-de-sac.
Bilateral round low density renal lesions which are likely cysts. No evidence for urinary tract calculi.
Hepatomegaly with fatty infiltration the liver.
Discharge Plan
-
Patient Disposition: Home (Routine Discharge)
Discharge Diagnosis/Procedures: Diverticulitis
Diet: Low Fiber and Low Sodium
Activity: As tolerated
Driving Restrictions: As prior to admission
Bathing Restrictions: OK to Shower
Instructions: Diverticulitis, Diverticulitis (DC)
Referrals:
Luis Manuel Brandt MD, Resident [Family Practice Resident Year1, General] - in less than 1 week
Referral Note: please make an appointment by calling the office to establish PCP
Vane Bethea MD [Active, Gastroenterology] - in one to two weeks
Referral Note: Please call the office and make an appointment with the GI for outpatient colonoscopy.
Additional Discharge Medication Instructions: Take the Augmentin one tablet two times a day for 10 days
please follow up with GI specialty an an outpatient for colonoscopy
Prescriptions:
New
amoxicillin-pot clavulanate 875-125 mg tablet
1 tab PO BID 10 Days Qty: 20 0RF
Continued
amlodipine 2.5 mg tablet
2.5 mg PO DAILY
losartan 100 mg tablet
100 mg PO HS
tadalafil 10 mg tablet
10 mg PO DAILY
dapagliflozin propanediol [Farxiga] 10 mg tablet
10 mg PO DAILY
Discharge Orders:
Discharge Patient (As Directed); Ordered 05/15/25
Ordered By: Luis Manuel Brandt
Discharge Date and Time
Discharge Date/Time: 05/15/25 17:14
Print Language: THAI
== END 2025-05-15 17:14 | disposition home or self-care (01) ==
LOC: 3 WEST ACU 23:12
PROVIDERS: Emergency Medicine; Physician Assistant; Specialist Research Data Abstracter/Coder; ADMITTING PHYSICIAN Internal Medicine; ATTENDING PHYSICIAN Hospitalist; EMERGENCY PHYSICIAN Emergency Medicine
DX: K57.32 Diverticulitis of large intestine without perforation or abscess without bleeding (principal); K21.9 Gastro-esophageal reflux disease without esophagitis; I12.9 Hypertensive chronic kidney disease with stage 1 through stage 4 chronic kidney disease, or unspecified chronic kidney disease; N18.30 Chronic kidney disease, stage 3 unspecified; K76.0 Fatty (change of) liver, not elsewhere classified; N28.1 Cyst of kidney, acquired; Z79.899 Other long term (current) drug therapy
CPT/HCPCS: 74176; 80048; 80053; 81003; 81015; 83605; 83690; 85025; 85027; 87040; 87086; 96361; 96365; 99285; G0378